=== PATIENT | female | born 1980 | race Caucasian/White ===

== ENCOUNTER 2017-04-07 23:20 | Emergency (ER) | payer OTHER ==
[~2017-04-07] VITALS: Ht 167.6 cm; Wt 95.3 kg
[~2017-04-07 23:20] MED LIST: AMOXICILLIN500 M2 PO; ATIVAN1 MG PO; BACTRIM DS 8001 TA1 PO; CELEXA20 MG PO; CEPHALEXIN500 M1 PO; CIPRO500 MG PO; CITALOPRAM HYDR20 MG PO; DIFLUCAN150 MG PO; FLEXERIL5 MG PO; HYDROCODONE BIT1 T11 PO; KEFLEX500 MG PO; LEVOFLOXACIN500 MG PO; NAPROSYN500 MG PO; NKHM; NKHM PO; NORCO 325 MG-51 TAB PO; OMEPRAZOLE DR20 MG PO; PREDNICOT20 MG PO; PREDNISONE10 MG PO; TRAZODONE50 MG PO; ZOFRAN ODT4 MG SL; ZYRTEC10 MG PO
[2017-04-08] MEDS ORDERED: DIFLUCAN150 MG PO (00:48)
[2017-04-08] MEDS ORDERED: SEPTDS PO (22:00)
== END 2017-04-08 01:30 | disposition home or self-care (01) ==
LOC: ED 23:20
DX: L02.31 Cutaneous abscess of buttock (principal); F17.200 Nicotine dependence, unspecified, uncomplicated

== ENCOUNTER → 2018-01-23 | Outpatient (CLI) | payer BC ==
[~2018-01-23] MED LIST changes: +SEPTDS PO; +VIBRAMYCIN100 MG PO
== END | disposition home or self-care (01) ==
LOC: MAMMO 15:20
DX: Z12.31 Encounter for screening mammogram for malignant neoplasm of breast (principal); N64.4 Mastodynia

== ENCOUNTER → 2018-01-31 | Outpatient (CLI) | payer BC | END | disposition home or self-care (01) | LOC: MAMMO 08:27 | DX: N63.0 Unspecified lump in unspecified breast (principal) ==

== ENCOUNTER → 2018-03-14 | Outpatient (CLI) | payer BC | END | disposition home or self-care (01) | LOC: US 14:55 | DX: N91.0 Primary amenorrhea (principal) ==

== ENCOUNTER → 2018-06-27 | Outpatient (CLI) | payer BC | END | disposition home or self-care (01) | LOC: US 10:58 | DX: R92.8 Other abnormal and inconclusive findings on diagnostic imaging of breast (principal) ==

== ENCOUNTER 2019-05-17 19:50 | Emergency (ER) | payer OTHER ==
[~2019-05-17] VITALS: Ht 167.6 cm
--- NOTE | ~2019-05-17 | EKG ---
[place], [place] ELECTROCARDIOGRAM REPORT NAME: AQUILINO GARCIA UNIT #: [id number] ROOM: DOCTOR: EPIPHANY DRAFT REPORT BIRTHDATE: [birth year] [facility] Test Date: 2019-05-17 Test Time: 19:55:26 Pat Name: AQUILINO GARCIA Department: Room: Gender: F Fusion Juncture Grinder: : 1980 Requested By: KIESHA WHITTEN Order Number: [id number] Reading MD: Juwan Parada MD Measurements Intervals [place] Rate: 118 P: 56 ND: 134 QRS: 55 QRSD: 115 T: 41 QT: 338 QTc: 474 Interpretive Statements Sinus tachycardia Probable left atrial enlargement Right bundle branch block Baseline wander in lead(s) V3,V4,V5,V6 Electronically Signed On 05-22-2019 11:31:13 PST by Juwan Parada MD CM:EKGRPT:ELECTROCARDIOGRAM REPORT 54 1131 KIESHA HARDING DRAFT REPORT KIESHA WHITTEN DO
--- NOTE | ~2019-05-17 | EKG ---
[place], [place] ELECTROCARDIOGRAM REPORT NAME: AQUILINO GARCIA UNIT #: [id number] ROOM: DOCTOR: EPIPHANY DRAFT REPORT BIRTHDATE: [birth year] [facility] Test Date: 2019-05-17 Test Time: 22:23:37 Pat Name: AQUILINO GARCIA Department: Room: Gender: F Night Clerk Auditor: : 1980 Requested By: KIESHA WHITTEN Order Number: [id number] Reading MD: Juwan Parada MD Measurements Intervals [place] Rate: 72 P: 57 VA: 146 QRS: 61 QRSD: 113 T: 54 QT: 387 QTc: 424 Interpretive Statements Sinus rhythm Probable left atrial enlargement Incomplete right bundle branch block Low voltage, precordial leads Baseline wander in lead(s) V2 Electronically Signed On 05-22-2019 11:31:17 PST by Juwan Parada MD CM:EKGRPT:ELECTROCARDIOGRAM REPORT 1131 KIESHA HARDING DRAFT REPORT KIESHA WHITTEN DO
[2019-05-17 20:04] LABS: HEMATOCRIT 42.7 % (37.0-47.0); HEMOGLOBIN 14.3 g/dl (12.0-16.0); MEAN CELL VOLUME 98.8 fl (81.0-99.0); MEAN CORPUSCULAR HGB 33.1 pg (27.0-31.0); MEAN CORPUSCULAR HGB CONC 33.5 g/dl (33.0-37.0); MEAN PLATELET VOLUME 9.3 fl (9.6-12.3); PLATELET COUNT AUTOMATED 295 10*3/uL (130-400); RED BLOOD COUNT 4.32 10*6/uL (4.10-5.10); RED CELL DISTRI WIDTH 12.4 % (0-14.5); WHITE BLOOD COUNT 16.3 10*3/uL (4.8-10.8)
[2019-05-17 20:21] LABS: ALBUMIN 3.3 gm/dl (3.1-4.5); ALKALINE PHOSPHATASE 75 U/L (45-117); BUN 9 mg/dl (7-24); CHLORIDE 109 mmol/L (98-107); CREATININE 0.79 mg/dL (0.55-1.02); SGOT/AST 21 IU/L (3-35); SGPT/ALT 30 U/L (12-78); SODIUM 141 mmol/L (136-145); TOTAL PROTEIN 7.3 gm/dL (6.4-8.2)
[2019-05-17 20:22] LABS: ACT PARTIAL THROMBO TIME 23.8 SECONDS (20.0-32.1); INTERNATIONAL NORM RATIO 0.9 (2.0-3.5)
[2019-05-17 20:23] LABS: TROPONIN I < 0.015 ng/ml (<0.045)
[2019-05-17 20:34] LABS: PLATELET SUFFICIENCY NORMAL (NORMAL); TOTAL CELLS COUNTED 100 #CELLS
[2019-05-17 21:49] LABS: BILIRUBIN NEGATIVE (NEGATIVE); BLOOD 2+ (NEGATIVE); CLARITY CLEAR (CLEAR); COLOR YELLOW (YELLOW); GLUCOSE NEGATIVE (NEGATIVE); KETONE NEGATIVE (NEGATIVE); LEUKO ESTERASE NEGATIVE (NEGATIVE); NITRITE NEGATIVE (NEGATIVE); SPECIFIC GRAVITY 1.015 (1.005-1.030); UROBILINOGEN 0.2 E.U./dl (0.2-1.0)
[2019-05-17 21:54] LABS: BACTERIA 1+; EPITHELIAL CELLS 21-30; RBC 0-2 rbc/hpf (0-2); WBC 0-2 wbc/hpf (0-5)
== END 2019-05-17 23:27 | disposition home or self-care (01) ==
LOC: ED 19:50
PROVIDERS: Emergency Medicine
DX: F41.9 Anxiety disorder, unspecified (principal); R07.89 Other chest pain; R20.0 Anesthesia of skin; R20.2 Paresthesia of skin; K21.9 Gastro-esophageal reflux disease without esophagitis; I10 Essential (primary) hypertension; F17.200 Nicotine dependence, unspecified, uncomplicated; Z79.899 Other long term (current) drug therapy; Z79.2 Long term (current) use of antibiotics

== ENCOUNTER → 2019-09-05 | Outpatient (CLI) | payer OTHER ==
[~2019-09-05] MED LIST changes: +LISINOPRIL20 MG PO
== END | disposition home or self-care (01) ==
LOC: US 06:55
DX: D17.79 Benign lipomatous neoplasm of other sites (principal); K43.9 Ventral hernia without obstruction or gangrene

== ENCOUNTER → 2019-09-20 | Day surgery (SDC) | payer OTHER ==
[2019-09-19 10:45] VITALS: BP 117/64
[2019-09-19 11:45] LABS: HEMATOCRIT 45.1 % (37.0-47.0); MEAN CELL VOLUME 96.6 fl (81.0-99.0); MEAN CORPUSCULAR HGB 32.1 pg (27.0-31.0); MEAN CORPUSCULAR HGB CONC 33.3 g/dl (33.0-37.0); MEAN PLATELET VOLUME 9.6 fl (9.6-12.3); PLATELET COUNT AUTOMATED 258 10*3/uL (130-400); RED BLOOD COUNT 4.67 10*6/uL (4.10-5.10); WHITE BLOOD COUNT 12.2 10*3/uL (4.8-10.8)
[2019-09-19 11:54] LABS: INTERNATIONAL NORM RATIO 0.9 (2.0-3.5)
[2019-09-19 12:04] LABS: PLATELET SUFFICIENCY NORMAL (NORMAL); TOTAL CELLS COUNTED 100 #CELLS
[2019-09-19 12:14] LABS: BUN 10 mg/dl (7-24); CREATININE 0.82 mg/dL (0.55-1.02)
[2019-09-19 12:59] LABS: CHLORIDE 106 mmol/L (98-107); POTASSIUM 3.4 mmol/L (3.5-5.1); SODIUM 136 mmol/L (136-145)
[~2019-09-20] VITALS: Ht 167.6 cm; Wt 113.4 kg
[~2019-09-20] MED LIST changes: +NORCO 5-325 TA1 EACH PO
[2019-09-20 08:00] VITALS: BP 99/60
[2019-09-20 10:05] VITALS: BP 152/96
[2019-09-20 10:20] VITALS: BP 144/76
[2019-09-20 10:35] VITALS: BP 121/76
[2019-09-20 11:10] VITALS: BP 114/84
== END | disposition home or self-care (01) ==
LOC: SDC 09-19 00:10
PROVIDERS: Surgery
DX: D17.5 Benign lipomatous neoplasm of intra-abdominal organs (principal); K42.0 Umbilical hernia with obstruction, without gangrene; F41.9 Anxiety disorder, unspecified; E03.9 Hypothyroidism, unspecified; I10 Essential (primary) hypertension; E11.9 Type 2 diabetes mellitus without complications; K21.9 Gastro-esophageal reflux disease without esophagitis; F32.9 Major depressive disorder, single episode, unspecified; E66.01 Morbid (severe) obesity due to excess calories; Z68.41 Body mass index [BMI] 40.0-44.9, adult; F17.210 Nicotine dependence, cigarettes, uncomplicated; Z98.51 Tubal ligation status; Z79.899 Other long term (current) drug therapy; Z98.890 Other specified postprocedural states

== ENCOUNTER → 2020-06-19 | Outpatient (CLI) | payer OTHER | END | disposition home or self-care (01) | LOC: LAB 10:35 | PROVIDERS: ATTEND Internal Medicine Critical Care Medicine | DX: R53.83 Other fatigue (principal) ==

== ENCOUNTER → 2020-06-22 | Outpatient (CLI) | payer OTHER | END | disposition home or self-care (01) | LOC: MAMMO 11:30 | PROVIDERS: ATTEND Internal Medicine | DX: Z12.31 Encounter for screening mammogram for malignant neoplasm of breast (principal) ==

== ENCOUNTER → 2020-07-29 | Outpatient (CLI) | payer OTHER | END | disposition home or self-care (01) | LOC: US 07:06 | PROVIDERS: ATTEND Internal Medicine | DX: R10.9 Unspecified abdominal pain (principal) ==

== ENCOUNTER 2021-01-27 12:20 | Emergency (ER) | payer OTHER ==
[~2021-01-27] VITALS: Wt 110.2 kg
[2021-01-27] MEDS ORDERED: IBUPROFEN600 MG PO (15:57)
== END 2021-01-27 16:02 | disposition home or self-care (01) ==
LOC: ED 12:20
DX: S93.692A Other sprain of left foot, initial encounter (principal); Z98.51 Tubal ligation status; Z90.49 Acquired absence of other specified parts of digestive tract; X50.1XXA Overexertion from prolonged static or awkward postures, initial encounter; Y93.89 Activity, other specified; Y92.89 Other specified places as the place of occurrence of the external cause; Y99.9 Unspecified external cause status

== ENCOUNTER 2022-02-02 11:22 | Emergency (ER) | payer OTHER ==
[~2022-02-02] VITALS: Ht 167.6 cm; Wt 6.8 kg
[~2022-02-02 11:22] MED LIST changes: +IBUPROFEN600 MG PO
[2022-02-02 12:42] LABS: BASO # 0.1 10*3/uL (0.0-0.1); BASO % 0.5 % (0.0-1.0); EOS # 0.1 10*3/uL (0.0-0.4); EOS % 0.8 % (1.0-4.0); HEMATOCRIT 45.7 % (37.0-47.0); LYMPH # 4.8 10*3/uL (1.3-4.4); LYMPH % 28.8 % (27.0-41.0); MEAN CELL VOLUME 97.6 fl (81.0-99.0); MEAN CORPUSCULAR HGB 33.5 pg (27.0-31.0); MEAN CORPUSCULAR HGB CONC 34.4 g/dl (33.0-37.0); MEAN PLATELET VOLUME 8.9 fl (9.6-12.3); MONO % 5.9 % (3.0-9.0); NEUT # 10.6 10*3/uL (2.3-7.9); NEUT % 63.2 % (47.0-73.0); PLATELET COUNT AUTOMATED 263 10*3/uL (130-400); RED BLOOD COUNT 4.68 10*6/uL (4.10-5.10); RED CELL DISTRI WIDTH 12.6 % (0-14.5); WHITE BLOOD COUNT 16.8 10*3/uL (4.8-10.8)
[2022-02-02 13:01] LABS: ALKALINE PHOSPHATASE 81 U/L (45-117); BUN 10 mg/dl (7-24); CHLORIDE 107 mmol/L (98-107); CREATININE 0.75 mg/dL (0.55-1.02); POTASSIUM 3.8 mmol/L (3.5-5.1); SGOT/AST 13 IU/L (3-35); SGPT/ALT 25 U/L (12-78); SODIUM 138 mmol/L (136-145)
== END 2022-02-02 14:05 | disposition home or self-care (01) ==
LOC: ED 11:22
PROVIDERS: Physician Assistant
DX: N92.1 Excessive and frequent menstruation with irregular cycle (principal); R53.83 Other fatigue; Z79.899 Other long term (current) drug therapy; Z90.49 Acquired absence of other specified parts of digestive tract; Z98.51 Tubal ligation status

== ENCOUNTER → 2022-02-25 | Outpatient (CLI) | payer OTHER | LOC: LAB 09:41 | PROVIDERS: ATTEND Nurse Practitioner Women's Health | DX: N93.9 Abnormal uterine and vaginal bleeding, unspecified (principal); R53.83 Other fatigue ==

== ENCOUNTER → 2022-03-24 | Outpatient (CLI) | payer OTHER | END | disposition home or self-care (01) | LOC: MAMMO 11:00 | PROVIDERS: ATTEND Nurse Practitioner Women's Health | DX: Z12.31 Encounter for screening mammogram for malignant neoplasm of breast (principal); N64.9 Disorder of breast, unspecified; N63.24 Unspecified lump in the left breast, lower inner quadrant ==

== ENCOUNTER → 2022-07-06 | Outpatient (CLI) | payer OTHER | END | disposition home or self-care (01) | LOC: CT 14:00 | PROVIDERS: ATTEND Surgery | DX: K76.0 Fatty (change of) liver, not elsewhere classified (principal); K42.9 Umbilical hernia without obstruction or gangrene; Z90.49 Acquired absence of other specified parts of digestive tract ==

== ENCOUNTER → 2022-07-25 | Day surgery (SDC) | payer BC ==
[~2022-07-25] VITALS: Ht 167.6 cm; Wt 108.9 kg
[~2022-07-25] MED LIST changes: +CARAFATE1 G1 PO; +PROTONIX40 MG PO; +TOPIRAMATE50 M2 PO; +TRULICITY3 MG/0.5 M SQ
[2022-07-25 07:49] VITALS: BP 133/83
[2022-07-25 08:39] VITALS: BP 137/81
[2022-07-25 08:54] VITALS: BP 123/93
[2022-07-25 09:07] VITALS: BP 129/71
== END | disposition home or self-care (01) ==
LOC: SDC 07-21 10:15
PROVIDERS: ATTEND Surgery
DX: R19.7 Diarrhea, unspecified (principal); K62.1 Rectal polyp; K63.5 Polyp of colon; K59.00 Constipation, unspecified; K29.50 Unspecified chronic gastritis without bleeding; K29.80 Duodenitis without bleeding; F41.9 Anxiety disorder, unspecified; F32.A Depression, unspecified; K21.9 Gastro-esophageal reflux disease without esophagitis; F17.210 Nicotine dependence, cigarettes, uncomplicated; E03.9 Hypothyroidism, unspecified; E11.9 Type 2 diabetes mellitus without complications; G47.30 Sleep apnea, unspecified; Z90.49 Acquired absence of other specified parts of digestive tract; Z79.899 Other long term (current) drug therapy

== ENCOUNTER → 2022-09-01 | Day surgery (SDC) | payer BC ==
[2022-08-29 14:31] VITALS: BP 154/76
[~2022-09-01] VITALS: Ht 172.7 cm; Wt 109.8 kg
[~2022-09-01] MED LIST changes: +COLACE100 MG PO; +HYDROCODONE-AC1 EAC1 PO; +JARDIANCE25 MG PO; +LIPITOR40 MG PO; +METFORMIN HYDR750 MG PO; +ONDANSETRON HYDR4 M1 PO
[2022-09-01 10:20] VITALS: BP 127/85
[2022-09-01 13:12] VITALS: BP 131/80
[2022-09-01 13:34] VITALS: BP 129/55
[2022-09-01 13:42] VITALS: BP 92/62
[2022-09-01 13:57] VITALS: BP 104/60
[2022-09-01 14:12] VITALS: BP 138/111
== END | disposition home or self-care (01) ==
LOC: SDC 08-29 14:00
PROVIDERS: ATTEND Surgery
DX: K43.0 Incisional hernia with obstruction, without gangrene (principal); F41.9 Anxiety disorder, unspecified; F32.A Depression, unspecified; K21.9 Gastro-esophageal reflux disease without esophagitis; F17.210 Nicotine dependence, cigarettes, uncomplicated; I10 Essential (primary) hypertension; E11.9 Type 2 diabetes mellitus without complications; E78.00 Pure hypercholesterolemia, unspecified; E03.9 Hypothyroidism, unspecified; Z90.49 Acquired absence of other specified parts of digestive tract; Z79.899 Other long term (current) drug therapy

== ENCOUNTER 2023-02-28 14:31 | Emergency (ER) | payer BC | END 2023-02-28 15:34 | disposition left against medical advice (07) | LOC: ED 14:31 | DX: M79.641 Pain in right hand (principal); M79.604 Pain in right leg; R20.0 Anesthesia of skin ==

== ENCOUNTER → 2023-06-20 | Outpatient (CLI) | payer BC | END | disposition home or self-care (01) | LOC: US 00:41 | PROVIDERS: ATTEND Internal Medicine | DX: N63.42 Unspecified lump in left breast, subareolar (principal) ==

== ENCOUNTER → 2023-07-27 | Day surgery (SDC) | payer BC ==
[2023-07-24 13:15] VITALS: BP 113/82
[2023-07-24 14:27] LABS: BASO # 0.1 10*3/uL (0.0-0.1); BASO % 0.8 % (0.0-1.0); EOS # 0.2 10*3/uL (0.0-0.4); EOS % 1.5 % (1.0-4.0); HEMATOCRIT 49.6 % (37.0-47.0); LYMPH # 3.7 10*3/uL (1.3-4.4); LYMPH % 32.7 % (27.0-41.0); MEAN CELL VOLUME 93.9 fl (81.0-99.0); MEAN CORPUSCULAR HGB 32.2 pg (27.0-31.0); MEAN CORPUSCULAR HGB CONC 34.3 g/dl (33.0-37.0); MEAN PLATELET VOLUME 9.5 fl (9.6-12.3); MONO # 0.7 10*3/uL (0.1-1.0); MONO % 6.3 % (3.0-9.0); NEUT # 6.6 10*3/uL (2.3-7.9); NEUT % 58.2 % (47.0-73.0); PLATELET COUNT AUTOMATED 197 10*3/uL (130-400); RED BLOOD COUNT 5.28 10*6/uL (4.10-5.10); RED CELL DISTRI WIDTH 11.5 % (0-14.5); WHITE BLOOD COUNT 11.4 10*3/uL (4.8-10.8)
[2023-07-24 14:47] LABS: BUN 8 mg/dl (9-23); CHLORIDE 102 mmol/L (98-107); POTASSIUM 3.8 mmol/L (3.4-5.1)
[~2023-07-27] VITALS: Ht 167.6 cm; Wt 104.3 kg
[~2023-07-27] MED LIST changes: +ASPIRIN ADULT L81 M1 PO; +DALVANCE500 MG IV
[2023-07-27 08:21] VITALS: BP 113/64
[2023-07-27 09:25] VITALS: BP 120/75
[2023-07-27 09:40] VITALS: BP 122/74
[2023-07-27 09:55] VITALS: BP 109/62
[2023-07-27 10:05] VITALS: BP 107/62
[2023-07-27 10:25] VITALS: BP 112/60
== END | disposition home or self-care (01) ==
LOC: SDC 07-24 13:15
PROVIDERS: ATTEND Surgery
DX: N61.1 Abscess of the breast and nipple (principal); F41.9 Anxiety disorder, unspecified; E03.9 Hypothyroidism, unspecified; E11.9 Type 2 diabetes mellitus without complications; I10 Essential (primary) hypertension; E78.00 Pure hypercholesterolemia, unspecified; G43.909 Migraine, unspecified, not intractable, without status migrainosus; G47.30 Sleep apnea, unspecified; K21.9 Gastro-esophageal reflux disease without esophagitis; F17.210 Nicotine dependence, cigarettes, uncomplicated; Z90.49 Acquired absence of other specified parts of digestive tract; Z98.51 Tubal ligation status; Z79.899 Other long term (current) drug therapy

== ENCOUNTER → 2023-08-09 | Outpatient (CLI) | payer BC | END | disposition home or self-care (01) | LOC: LAB 09:11 | PROVIDERS: ATTEND Internal Medicine | DX: E11.9 Type 2 diabetes mellitus without complications (principal) ==

== ENCOUNTER → 2023-10-25 | Outpatient (CLI) | payer BC ==
[~2023-10-25] MED LIST changes: +LANTUS SOL100 UNIT/1 SC; +Regadenoson 0.4 MG/5 ML SYR IV ONE; +Technetium Tc 99M Tetrofosmi 0.23 MG KIT IJ SCH
== END | disposition home or self-care (01) ==
LOC: CARD 00:01
PROVIDERS: ATTEND Internal Medicine
DX: R07.2 Precordial pain (principal)

== ENCOUNTER → 2024-09-16 | Outpatient (CLI) | payer BC ==
[~2024-09-16] MED LIST changes: -Regadenoson 0.4 MG/5 ML SYR IV ONE; -Technetium Tc 99M Tetrofosmi 0.23 MG KIT IJ SCH
== END | disposition home or self-care (01) ==
LOC: MAMMO 01:05
PROVIDERS: ATTEND Nurse Practitioner Women's Health
DX: Z12.31 Encounter for screening mammogram for malignant neoplasm of breast (principal)

== ENCOUNTER → 2025-04-24 | Outpatient (CLI) | payer BC | END | disposition home or self-care (01) | LOC: MAMMO 07:31 | PROVIDERS: ATTEND Nurse Practitioner Women's Health | DX: R92.312 Mammographic fatty tissue density, left breast (principal); N63.20 Unspecified lump in the left breast, unspecified quadrant; N64.4 Mastodynia ==